=== PATIENT | male | born 1950 | race Caucasian/White ===

== ENCOUNTER → 2024-09-19 10:40 | Outpatient (BNVA) | payer OTHER, SELFPAY | PROVIDERS: PCP Nurse Practitioner Family; Visit Provider Internal Medicine | DX: E27.9 Disorder of adrenal gland, unspecified (principal) | CPT/HCPCS: 36415; 80053; 82088; 84244 ==

== ENCOUNTER → 2024-09-27 10:45 | Outpatient (BNVA) | payer OTHER, SELFPAY | PROVIDERS: PCP Nurse Practitioner Family; Visit Provider Internal Medicine | DX: E27.9 Disorder of adrenal gland, unspecified (principal) | CPT/HCPCS: 82384; 82530; 82570; 83835 ==

== ENCOUNTER → 2024-11-23 09:51 | Outpatient (BNVA) | payer MEDICARE, OTHER, SELFPAY | PROVIDERS: PCP Nurse Practitioner Family; Visit Provider Dermatology | DX: S70.361A Insect bite (nonvenomous), right thigh, initial encounter (principal); S80.861A Insect bite (nonvenomous), right lower leg, initial encounter; S80.862A Insect bite (nonvenomous), left lower leg, initial encounter; S70.362A Insect bite (nonvenomous), left thigh, initial encounter; X58.XXXA Exposure to other specified factors, initial encounter; L92.3 Foreign body granuloma of the skin and subcutaneous tissue; L28.0 Lichen simplex chronicus; L82.1 Other seborrheic keratosis; L57.8 Other skin changes due to chronic exposure to nonionizing radiation; D22.5 Melanocytic nevi of trunk; D22.39 Melanocytic nevi of other parts of face; L81.4 Other melanin hyperpigmentation; L57.0 Actinic keratosis | CPT/HCPCS: 17000; 99204 ==